=== PATIENT | male | born 1995 ===

== ENCOUNTER 2023-08-19 08:34 | Outpatient (AMB) | payer OTHER, SELFPAY ==
[2023-08-19 09:18] VITALS: BP 110/64; PULSE 76; TEMP 36.6; O2SAT 98; BMI 24.7
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
== END 2023-08-19 09:50 | disposition home or self-care (01) ==
PROVIDERS: PCP Internal Medicine; Visit Provider Physician Assistant
DX: M79.641 Pain in right hand (principal); M79.89 Other specified soft tissue disorders
CPT/HCPCS: 99213

== ENCOUNTER 2023-08-19 09:37 | Outpatient (REF) | payer OTHER, SELFPAY ==
--- NOTE | ~2023-08-19 | XR_ITS ---
EXAMINATION: XR HAND, RIGHT CLINICAL INFORMATION: Right-sided pain COMPARISON: None available. TECHNIQUE: PA, lateral, and oblique views of the right hand. FINDINGS: No fracture, dislocation or destructive process. Joint spaces are preserved. XR/XR hand RT min 3V IMPRESSION: Unremarkable study.
== END 2023-08-19 09:38 | disposition home or self-care (01) ==
LOC: HO.HMGCX 09:37
PROVIDERS: Visit Provider Physician Assistant
DX: M79.641 Pain in right hand (principal)
CPT/HCPCS: 73130